=== PATIENT | male | born 1980 | race Caucasian/White ===

== ENCOUNTER 2025-10-06 18:31 | Emergency (ER) | payer OTHER, SELFPAY ==
[2025-10-06 18:56] VITALS: BP 139/73; PULSE 100; RESP 16; TEMP 37.3; O2SAT 99; BMI 29.5
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
[2025-10-06] MEDS: CYCLOBENZAPRINE HCL 10 MG TABLET PO (21:36)
[2025-10-06 21:45] VITALS: BP 133/61; PULSE 56; RESP 16; O2SAT 99
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
== END 2025-10-06 23:59 | disposition home or self-care (01) ==
PROVIDERS: Emergency Provider Family Medicine
DX: S39.012A Strain of muscle, fascia and tendon of lower back, initial encounter (principal); V49.9XXA Car occupant (driver) (passenger) injured in unspecified traffic accident, initial encounter; M70.61 Trochanteric bursitis, right hip
CPT/HCPCS: 72131; 73700; 96372; 99284; A9270; J1885